=== PATIENT | male | born 1990 | race Caucasian/White ===

== ENCOUNTER 2020-11-28 05:49 | Emergency (ER) | payer OTHER ==
[~2020-11-28 05:49] MED LIST: IBUPROFEN600 MG PO; NORFLEX 100 MG100 MG PO; PREDNISONE 50 M50 MG PO
[2020-11-28 06:19] LABS: HEMOGLOBIN 14.8 gm/dl (14.0-17.5); RED BLOOD COUNT 5.07 M/UL (4.20-5.50); WHITE BLOOD COUNT 9.8 K/UL (4.5-11.0)
[2020-11-28 06:36] LABS: BUN/CREATININE RATIO 13 (0-10)
[2020-11-28] MEDS ORDERED: HYDROCODON-ACE1 EAC4 PO (08:01)
[2020-11-28] MEDS ORDERED: IBUPROFEN600 MG PO (08:01)
[2020-11-28] MEDS ORDERED: ZOFRAN ODT 4 MG4 MG PO (08:01)
== END 2020-11-28 08:28 | disposition home or self-care (01) ==
LOC: ER1 05:49
PROVIDERS: Emergency Medicine
DX: N13.2 Hydronephrosis with renal and ureteral calculous obstruction (principal); Z88.1 Allergy status to other antibiotic agents
CPT/HCPCS: 80053; 81001; 85025; 96374; 96375; 99284; J1885; J2270; J2405

== ENCOUNTER 2021-07-28 05:41 | Emergency (ER) | payer SELFPAY ==
[~2021-07-28 05:41] MED LIST changes: +HYDROCODON-ACE1 EAC4 PO; +ZOFRAN ODT 4 MG4 MG PO
[2021-07-28 06:04] LABS: HEMOGLOBIN 14.8 gm/dl (14.0-17.5); RED BLOOD COUNT 4.82 M/UL (4.20-5.50); WHITE BLOOD COUNT 8.6 K/UL (4.5-11.0)
[2021-07-28 06:34] LABS: BUN/CREATININE RATIO 12 (0-10)
[2021-07-28] MEDS ORDERED: HYDROCODON-ACE1 EAC4 PO (07:26)
[2021-07-28] MEDS ORDERED: IBUPROFEN600 MG PO (07:28)
== END 2021-07-28 07:50 | disposition home or self-care (01) ==
LOC: ER1 05:41
PROVIDERS: Physician Assistant
DX: N13.2 Hydronephrosis with renal and ureteral calculous obstruction (principal); Z88.8 Allergy status to other drugs, medicaments and biological substances
CPT/HCPCS: 80053; 81001; 85025; 96374; 96375; 99284; J1885; J2270; J2405

== ENCOUNTER 2021-11-17 13:36 | Emergency (ER) | payer SELFPAY | END 2021-11-17 15:06 | disposition home or self-care (01) | LOC: ER1 13:36 | DX: U07.1 COVID-19 (principal); F17.220 Nicotine dependence, chewing tobacco, uncomplicated; Z88.1 Allergy status to other antibiotic agents | CPT/HCPCS: 71045; 99284 ==

== ENCOUNTER 2022-01-03 09:01 | Emergency (ER) | payer SELFPAY ==
[2022-01-03] MEDS ORDERED: PROAIR DIGIHAL90 MCG INH (10:49)
== END 2022-01-03 10:52 | disposition home or self-care (01) ==
LOC: ER1 09:01
DX: J40 Bronchitis, not specified as acute or chronic (principal); Z20.822 Contact with and (suspected) exposure to COVID-19; Z88.1 Allergy status to other antibiotic agents
CPT/HCPCS: 0240U; 71045; 99283

== ENCOUNTER 2022-02-18 16:52 | Emergency (ER) | payer SELFPAY ==
[~2022-02-18 16:52] MED LIST changes: +PROAIR DIGIHAL90 MCG INH
[2022-02-18 18:15] LABS: HEMOGLOBIN 14.1 gm/dl (14.0-17.5); RED BLOOD COUNT 4.74 M/UL (4.20-5.50); WHITE BLOOD COUNT 7.9 K/UL (4.5-11.0)
[2022-02-18 18:54] LABS: BUN/CREATININE RATIO 13 (0-10)
[2022-02-18] MEDS ORDERED: NORFLEX 100 MG100 MG PO (20:41)
[2022-02-18] MEDS ORDERED: IBUPROFEN600 MG PO (20:41)
== END 2022-02-18 20:56 | disposition home or self-care (01) ==
LOC: ER1 16:52
PROVIDERS: Physician Assistant
DX: S20.211A Contusion of right front wall of thorax, initial encounter (principal); Z88.1 Allergy status to other antibiotic agents; V43.52XA Car driver injured in collision with other type car in traffic accident, initial encounter; Y92.410 Unspecified street and highway as the place of occurrence of the external cause
CPT/HCPCS: 71260; 72125; 72131; 73552; 80053; 81001; 85025; 96374; 99284; J1885; Q9967